=== PATIENT | male | born 1975 | race Hispanic/Latino ===

== ENCOUNTER → 2023-10-07 07:48 | Outpatient (REF) | payer OTHER, SELFPAY | LOC: REG 07:48 | PROVIDERS: ATTENDING PHYSICIAN Family Medicine Sports Medicine | DX: M17.12 Unilateral primary osteoarthritis, left knee (principal) | CPT/HCPCS: 77073 ==

== ENCOUNTER 2024-09-18 10:50 | Emergency (ER) | payer OTHER, SELFPAY ==
[2024-09-18 10:55] VITALS: BP 145/103
--- NOTE | 2024-09-18 11:53 | ED.GENMED ---
History of Present Illness
<Davis Bryson MD, Resident - Last Filed: 09/18/24 13:20>
General
Chief Complaint: Musculo-Skeletal Complaint
Time Seen by Provider: 09/18/24 11:42
History of Present Illness
History of Present Illness:
This is a 49-year-old male who presents to ER complaining of right elbow pain ongoing for the past week. Patient reports he slammed his elbow on the weight at the gym. Initially, symptoms are minimal. He was using cold compression and Tylenol
for symptoms. He reports his elbow has been swelling up and feeling warm since incident. He denies fever, chills. He denies numbness, tingling sensation to fingers. He denies pain at site, although states slamming his elbow on the wall or table
table elicits pain. Denies tenderness to palpation. States it has been difficult to see his PCP for further evaluation, hence came to the ED.
Past History
<Davis Bryson MD, Resident - Last Filed: 09/18/24 13:20>
Past History
ED Past Medical History: Other (HIV positive. Is followed by his HIV doctor in [place]. Take ATRIPL)
Social History
Tobacco: Non-smoker
Alcohol: None
Drug: None
Personal: Single
Employment: Employed (in a restaurant)
Family History
Family History: Other (n/c)
Phy Exam
<Davis Bryson MD, Resident - Last Filed: 09/18/24 13:20>
General Physical Exam
General Presentation: well appearing and no apparent distress
General Mental: alert
Cardiovascular Exam
Cardiovascular Exam: regular rate/rhythm and no edema
Pulmonary Exam
Pulmonary Exam: lungs clear and no respiratory distress
Musculoskeletal Exam
Musculoskeletal Exam: full ROM and other (Right elbow-inspection, no erythema, swelling present. On palpation elbow warm to touch, nontender on palpation of the elbow. Range of motion did not elicit any pain)
Psychiatric Exam
Psychiatric Exam: normal mood/affect
Course
<Davis Bryson MD, Resident - Last Filed: 09/18/24 13:20>
Orders/Labs/Results
Orders:
Orders
09/18/24 10:57
Elbow, 3 View, Right [CR Elbow - Right Min 3 Views] Urgent
Comment: + swelling
Reason For Exam: right elbow pain. may have hit elbow one wk ago
Vital Signs
Initial and Last Documented VS:
Initial Vital Signs
Temp Pulse Resp BP Pulse Ox
98.0 F 75 16 145/103 98
09/18/24 10:55 09/18/24 10:55 09/18/24 10:55 09/18/24 10:55 09/18/24 10:55
Last Documented Vital Signs
Temp Pulse Resp BP Pulse Ox
98.0 F 75 16 145/103 98
09/18/24 10:55 09/18/24 10:55 09/18/24 10:55 09/18/24 10:55 09/18/24 10:55
<George Meza, DO - Last Filed: 09/18/24 12:49>
Orders/Labs/Results
Orders:
Orders
09/18/24 10:57
Elbow, 3 View, Right [CR Elbow - Right Min 3 Views] Urgent
Comment: + swelling
Reason For Exam: right elbow pain. may have hit elbow one wk ago
Vital Signs
Initial and Last Documented VS:
Initial Vital Signs
Temp Pulse Resp BP Pulse Ox
98.0 F 75 16 145/103 98
09/18/24 10:55 09/18/24 10:55 09/18/24 10:55 09/18/24 10:55 09/18/24 10:55
Last Documented Vital Signs
Temp Pulse Resp BP Pulse Ox
98.0 F 75 16 145/103 98
09/18/24 10:55 09/18/24 10:55 09/18/24 10:55 09/18/24 10:55 09/18/24 10:55
<Davis Bryson MD, Resident - Last Filed: 09/18/24 13:20>
MDM/Problems Addressed
MDM/Problems Addressed:
This is a 49-year-old male who presents with right elbow pain ongoing for the past 1 week. Nontender to palpation on physical examination. Although warm, swollen elbow. Evaluated with an x-ray of the R elbow which was unremarkable. Etiology
likely right elbow contusion causing pain, although swelling is due to olecranon bursitis. Recommend ice, rest, Tylenol. Recommend outpatient follow-up with orthopedics.
<Davis Bryson MD, Resident - Last Filed: 09/18/24 13:20>
*Critical Care Note
Total Time (30-74mins, 75-104mins- exclusive of procedures): Not Applicable
ED Attending Note
<Davis Bryson MD, Resident - Last Filed: 09/18/24 13:20>
-
Portions of this chart may have been created with voice recognition software.� Occasional wrong word or��sound alike� substitutions may have occurred due to the inherent limitations of voice recognition software.
<George Meza, DO - Last Filed: 09/18/24 12:49>
ED Attending Note
Patient seen and examined by attending physician: Yes
I performed a history and physical exam of patient and discussed management with resident, I reviewed resident's note and agree with documented findings and plan of care.: Yes
ED Attending Note:
I reviewed your history plan by Davis Bryson MD. My exam revealed nontender, mild olecranon bursitis. Do not suspect infection. Will discharge to follow-up with primary care and orthopedics.
Discharge Plan
Departure
Patient Disposition: Home (Routine Discharge)
Date of Disposition: 09/18/24
Time of Disposition: 12:44
Patient with high blood pressure during this ER visit?: Yes
Discharge Problem:
Bursitis, olecranon
Prescriptions:
No Action
doxycycline hyclate 100 MG capsule
100 mg PO Q12 Qty: 28 0RF
sulfamethoxazole-trimethoprim 1 TABLET tablet
2 tab PO BID Qty: 28 0RF
valacyclovir [Valtrex] 1,000 MG tablet
1,000 mg PO TID Qty: 21 0RF
sulfamethoxazole-trimethoprim 1 TABLET tablet
1 tab PO BID Qty: 14 0RF
cefadroxil [Duricef] 500 MG capsule
500 mg PO BID Qty: 14 0RF
benzonatate 100 mg capsule
100 mg PO TID PRN (Reason: cough) Qty: 15 0RF
Referrals:
Jorge Bolton MD [Active] -
UNKNOWN - PT DOES,NOT KNOW [Family Provider] -
Interventions
Interventions:
*Risk Screen - Suicide Last Done: 09/18/24 10:55
*General Assessment Last Done: 09/18/24 11:55
*Neglect/Abuse Screening Last Done: 09/18/24 10:55
*ED- Fall Risk Assessment Last Done: 09/18/24 11:55
*ED COVID-19 Vaccine History Last Done: 09/18/24 11:55
ED-Musculoskeletal Assessment Last Done: 09/18/24 11:54
Discharge Date and Time
Print Language: UKRAINIAN
== END 2024-09-18 13:24 | disposition home or self-care (01) ==
LOC: EMR 10:50
PROVIDERS: EMERGENCY PHYSICIAN Emergency Medicine
DX: M70.21 Olecranon bursitis, right elbow (principal); W22.8XXA Striking against or struck by other objects, initial encounter; R03.0 Elevated blood-pressure reading, without diagnosis of hypertension
CPT/HCPCS: 99283; 73080